=== PATIENT | male | born 2000 | race Caucasian/White ===

== ENCOUNTER 2025-02-03 21:15 | Emergency (ER) | payer OTHER ==
[~2025-02-03] VITALS: Ht 167.6 cm; Wt 81.8 kg
[2025-02-03 21:39] VITALS: TEMP 97.9
[2025-02-03 22:31] LABS: PLATELET COUNT (AUTO) 247 K/uL (150-450); RED BLOOD CELL COUNT(AUTO) 4.86 MIL/uL (4.50-5.90); RED CELL DISTRIBUTION WIDTH 12.8 % (11.5-14.5); WHITE BLOOD COUNT (AUTO) 6.7 K/uL (4.5-11.0)
[2025-02-03 22:38] LABS: CALCIUM, TOTAL 9.1 mg/dL (8.8-10.5); CREATININE 0.98 mg/dL (0.60-1.30); GLOMERULAR FILTR. RATE CALC > 60 mL/min (>60); GLUCOSE,RANDOM 92 mg/dL (70-110); SODIUM SERUM 141 mmol/L (136-145); UREA NITROGEN, BLOOD 17 mg/dL (7-18)
[2025-02-03 22:46] LABS: TROPONIN I-HIGH SENSITIVITY 6 ng/L (<76)
[2025-02-03 23:20] VITALS: BP 117/84; PULSE 66; RESP 16; O2SAT 99
[2025-02-03] MEDS ORDERED: IBUP-1492 PO (23:36)
[2025-02-03] MEDS: IBUPROFEN 600 MG TABLET PO ONE (23:45)
== END 2025-02-03 23:47 | disposition home or self-care (01) ==
LOC: EMS 21:15
DX: R07.89 Other chest pain (principal); F41.9 Anxiety disorder, unspecified
CPT/HCPCS: 71045; 80048; 84484; 85025; 93005; 99285; 36415-L1; 36415-TC